=== PATIENT | female | born 1960 | race Caucasian/White ===

== ENCOUNTER 2018-07-02 10:22 | Day surgery (SDC) | payer BC ==
[2018-07-02] MEDS ORDERED: PROPOFOL 10 MG/ML VIAL IV ONE (10:23)
[2018-07-02] MEDS ORDERED: LIDOCAINE 2% MDV (20MG/ML) 20ML VIAL IV ONE (10:23)
--- NOTE | 2018-07-03 08:40 | Operative Note ---
OPERATION: COLONOSCOPY to the cecum with cold snare polypectomy. INDICATION: Prior history of adenomatous polyps. Patient also with paternal history of colon cancer. She presents today after 7 years from her last examination completed at another institution. ANESTHESIA: Intravenous sedation was administered by the department of anesthesiology and included Diprivan titrated to effect. PROCEDURE: Following informed consent from this alert individual including a discussion of the risks and benefits of the procedure and an opportunity for the patient to ask questions, the patient was in the left lateral decubitus position. A digital examination was performed. No abnormalities were noted. Following this, the Olympus [id number] video colonoscope was inserted into the rectum without resistance. The rectal mucosa had a normal appearance with normal folds and distensibility. There was melanosis coli noted. In effect, this was visualized throughout the entire colon. Throughout the bowel the mucosa appeared normal, the folds were normal, and the bowel was fairly well distensible. The cecum was defined by noting the appendiceal orifice and ileocecal valve. The terminal ileum was cannulated and found to be unremarkable. From the base of the cecum, retroflexion was accomplished following air insufflation and failed to demonstrate changes. The colon preparation overall was good. The colonoscope was then slowly withdrawn. In the mid ascending colon, there was a 6 mm sessile polyp noted which was removed with one application of cold snare polypectomy. No other changes were noted upon withdrawal throughout the remainder of the bowel. Retroflexion in the rectum was endoscopically unremarkable. Again melanosis coli was noted throughout. The instrument was straightened and removed. The patient tolerated the procedure well and was returned to the recovery area in stable condition. IMPRESSION: 1. A 6 mm ascending colon polyp removed with cold snare polypectomy. 2. Melanosis coli. RECOMMENDATIONS: The patient was advised to have recheck colonoscopy in 5 years' time or sooner should problems arise. Followup will otherwise be with Siri Vincent DO. As always, thank you for allowing me to participate in the care of your patient. CC: DO JOSEPH Jung
== END 2018-07-02 11:28 | disposition home or self-care (01) ==
LOC: HOP 10:22
PROVIDERS: ATTEND Internal Medicine Gastroenterology
DX: Z12.11 Encounter for screening for malignant neoplasm of colon (principal); Z86.010 Personal history of colon polyps; Z80.0 Family history of malignant neoplasm of digestive organs; D12.2 Benign neoplasm of ascending colon; K63.89 Other specified diseases of intestine